=== PATIENT | female | born 1990 | race Caucasian/White ===

== ENCOUNTER 2019-02-15 05:13 | Emergency (ER) | payer MEDICAID ==
[~2019-02-15] VITALS: Ht 157.5 cm; Wt 83.9 kg
--- NOTE | 2019-02-15 05:24 | NUR ---
PT TAKEN TO BED 9
[2019-02-15 05:25] VITALS: BP 122/85
--- NOTE | 2019-02-15 05:25 | NUR ---
PT CAME INTO ER WITH C/O PELVIC PAIN X1 DAY. PT STATED THAT SHE ALSO HAS PAIN THAT RADIATES TO THE LEFT SIDE. PT HAS HX OF ABNORMAL PAP SMEAR AND PRE CANCER CELLS LAST MAY. PT ALSO HAS AN IUD PLACED. PT IS ALERT AND ANSWERS QUESTIONS APPROPRIATELY. PT STATED THAT PRIOR TO ER HER PAIN WAS 8/10 BUT HAS NO PAIN AT THIS TIME, ER MADE AWARE OF STATUS, SAFETY MEASURES IN PLACE.
--- NOTE | 2019-02-15 06:30 | NUR ---
PT AMBULATED TO THE RESTROOM AND GAVE A U/A SPECIMEN. SENT TO LAB
--- NOTE | 2019-02-15 07:17 | NUR ---
Dr. Sood examining patient.
[2019-02-15] MEDS ORDERED: NACL 0.9% 1,000 ML IV SCH (07:28)
[2019-02-15] MEDS ORDERED: KETOROLAC 30 MG/ML VIAL IVP ONE (07:30)
--- NOTE | 2019-02-15 07:45 | NUR ---
PT TRASNPORTED TO CT SCAN VIA WHEEL CHAIR
[2019-02-15 08:00] LABS: BASOPHILS % (AUTO) 0.4 % (0.0-2.0); EOSINOPHILS % (AUTO) 0.4 % (0.0-4.0); HEMOGLOBIN 13.7 g/dL (12.0-16.0); LYMPHOCYTES # (AUTO) 1.4 K/uL (2.5-16.5); LYMPHOCYTES % (AUTO) 23.1 % (20.5-51.1); MEAN CORPUSCULAR HEMOGLOBIN 31 pg (27-31); MEAN CORPUSCULAR HGB CONC 33 g/dL (33-37); MEAN CORPUSCULAR VOLUME 91.4 fL (80-94); MONOCYTES # (AUTO) 0.3 K/uL (0.8-1.0); MONOCYTES % (AUTO) 5.2 % (1.7-9.3); NEUTROPHILS # (AUTO) 4.3 K/uL (1.8-7.7); NEUTROPHILS % (AUTO) 70.9 % (42.2-75.2); PLATELET COUNT (AUTO) 242 K/uL (140-450); RED BLOOD CELL COUNT(AUTO) 4.49 MIL/uL (4.20-5.40); RED CELL DISTRIBUTION WIDTH 12.9 % (11.6-13.7)
[2019-02-15 08:13] LABS: ALBUMIN 3.9 g/dL (3.4-5.0); ANION GAP 13.5 (8-16); CARBON DIOXIDE 26.7 mmol/L (21-32); CREATININE 0.5 mg/dL (0.6-1.3); POTASSIUM 4.2 mmol/L (3.5-5.1); TOTAL BILIRUBIN 0.3 mg/dL (0.0-1.0)
[2019-02-15 08:18] LABS: BILIRUBIN,URINE NEGATIVE (NEGATIVE); BLOOD, URINE 1+ (NEGATIVE); COLOR,URINE YELLOW (YELLOW); LEUKOCYTE ESTERASE ,URINE NEGATIVE (NEGATIVE); NITRITE, URINE NEGATIVE (NEGATIVE); UGLUCOSE NEGATIVE (NEGATIVE)
[2019-02-15 08:29] LABS: APPEARANCE,URINE SLIGHTLY HAZY (CLEAR)
[2019-02-15 08:30] LABS: RBC,URINE 0-5 /HPF (0-5); WBC,URINE 0-5 /HPF (0-5)
[2019-02-15 08:37] VITALS: BP 103/56
--- NOTE | 2019-02-16 12:14 | NUR ---
Late entry. Confirmed with RN that 0.9 NS IV completed at 0900 Addendum: 02/16/19 at 1215 by [email or web address] 0.9 NS completed at 0835.
== END 2019-02-15 08:37 | disposition home or self-care (01) ==
LOC: MED 05:13
DX: K59.00 Constipation, unspecified (principal); N83.201 Unspecified ovarian cyst, right side
CPT/HCPCS: 36415; 74176; 80053; 81001; 81025; 83690; 85025; 96374; 99284; J1885